=== PATIENT | female | born 1960 | race Caucasian/White ===

== ENCOUNTER 2020-08-26 12:53 | Outpatient (CLI) | payer OTHER, SELFPAY ==
[2020-08-26 13:19] LABS: Basophils Percent Auto 0.3 % (0.2-1.2); Eosinophils Absolute Auto 0.2 K/mm3 (0-0.3); Eosinophils Percent Auto 1.5 % (0-4.4); Hematocrit 44.7 % (37.0-47.0); Immature Granulocyte Absolute 0.04 K/mm3 (0.00-0.031); Immature Granulocyte Percent A 0.3 % (0-0.5); Lymphocytes Absolute Auto 1.62 K/mm3 (0.9-3.2); Lymphocytes Percent Auto 14.1 % (18.3-44.2); Mean Corpuscular HGB Conc 31.3 g/dl (32-36); Mean Corpuscular Hemoglobin 27.9 pg (26-34); Mean Corpuscular Volume 89.2 fl (80-100); Mean Platelet Volume 9.9 fl (7.4-10.4); Monocytes Absolute Auto 0.6 K/mm3 (0.1-0.6); Monocytes Percent Auto 5.3 % (2.6-8.5); Neutrophils Absolute Auto 9.1 K/mm3 (1.3-6.7); Neutrophils Percent Auto 78.5 % (45.5-73.1); Platelet Count Result 183 k/mm3 (150-375); Red Blood Count 5.01 M/mm3 (4.2-5.4); Red Cell Distribution Width 14.3 % (11.5-14.5); White Blood Count 11.5 K/mm3 (4.5-10.0)
[2020-08-26 15:39] LABS: Vitamin D 25 Hydroxy 38.7 ng/mL
[2020-08-26 15:41] LABS: Add Urine Microscopic? YES; Appearance Urine Cloudy (Clear); Bacteria Urine 2+ /hpf; Bilirubin Urine Negative (Negative); Blood Urine 2+ (Negative); Color Urine Yellow (Yellow); Glucose Urine UA Negative (Negative); Ketones Urine Negative (Negative); Leukocyte Esterase Ur Trace LEU/UL (NEGATIVE); Mucus Urine Moderate /lpf; Nitrate Urine Positive (Negative); Protein Urine 1+ mg/dL (Negative); Specific Grav Ur 1.019 (1.001-1.035); Squamous Epithelial Cell Urine Many /hpf (Few); Urobilinogen Urine Negative mg/dL (<2.0); WBC Urine 31-50 /hpf (0-3)
[2020-08-26 16:42] LABS: Alanine Aminotransferase 9 U/L (4-35); Albumin Level 4.6 g/dL (3.5-5.1); Alkaline Phosphatase 75 U/L (38-126); Anion Gap 9 mmol/L (8-16); Aspartate Amino Transferase 21 U/L (14-36); Blood Urea Nitrogen 24 mg/dL (7-17); Calcium 10.6 mg/dL (8.4-10.2); Carbon Dioxide 29 mmol/L (22-30); Chloride 102 mmol/L (98-107); Cholesterol 160 mg/dL (0-200); Estimated Glomerular Filt Rate > 60; Glucose 85 mg/dL (65-105); HDL Direct 72 mg/dL; Potassium 4.4 mmol/L (3.4-5.0); Sodium 140 mmol/L (137-145); Triglycerides 79 mg/dL (<150); Uric Acid 5.1 mg/dL (2.5-7.5)
[2020-08-26 16:55] LABS: LDL Cholesterol Direct 76 mg/dL
== END 2020-08-26 12:54 | disposition home or self-care (01) ==
LOC: ANHLAB 12:55
PROVIDERS: PCP Family Medicine; Visit Provider Internal Medicine
DX: E55.9 Vitamin D deficiency, unspecified (principal); D51.9 Vitamin B12 deficiency anemia, unspecified
CPT/HCPCS: 36415; 80053; 80061; 81001; 82306; 82607; 84443; 84550; 85025

== ENCOUNTER 2020-11-30 03:03 | Emergency (ER) | payer OTHER, SELFPAY ==
--- NOTE | ~2020-11-30 | XR_ITS ---
EXAMINATION: XR chest ET placement DATE: 11/30/2020 03:47 INDICATION: Endotracheal tube placement. Transient alteration of awareness. TECHNIQUE: frontal view of the chest was obtained. COMPARISON: Chest radiograph dated 10/25/2018 FINDINGS: Endotracheal tube tip 5.5 cm above the sulma. Nasogastric tube extends below the left hemidiaphragm with distal tip collimated off the study. Lungs remain clear with no focal airspace opacities, pulmo nary edema, pleural effusion or pneumothorax. The cardiomediastinal silhouette is normal. Bilateral o ld healed rib fractures. IMPRESSION: 1. No acute cardiopulmonary disease. Reviewed, dictated and finalized at location A.
--- NOTE | ~2020-11-30 | CT_ITS ---
EXAMINATION: CT brain wo con DATE: 11/30/2020 03:12 INDICATION: Unresponsive TECHNIQUE: Computed tomography (CT) of the head was performed without intravenous contrast. Sagittal and coronal reconstructions were performed. The mA was adjusted according to patient size. Iterative reconstruction technique was employed. The dose-length product was 605.33 mGy-cm. COMPARISON: None FINDINGS: Large intraparenchymal hematoma measuring approximately 5.0 x 4.8 x 4.5 cm centimeters in the left ba trell ganglia. There is extension of blood throughout the compressed and distorted left lateral ventric le. Additional extension of a small amount of blood into the anterior horn of the right lateral ventr icle and into the third and fourth ventricles. The intraparenchymal hemorrhage results in significant local mass effect including as previously detailed distortion of the left lateral ventricle as well as narrowing of the sulci and 1.3 cm left right midline shift at the level of the third ventricle and interventricular septum. No acute infarction. There is moderate scattered white matter hypoattenuati on consistent with chronic small vessel ischemic disease. The orbits and mastoid air cells are normal . Mild mucosal thickening the bilateral ethmoid sinuses. Intracranial calcified cerebral atherosclero sis is noted. IMPRESSION: 1. Large intraparenchymal hematoma centered in the left basal ganglia with intraventricular extension of hemorrhage and 1.3 cm left right midline shift. Reviewed, dictated and finalized at location A. IMPRESSION: 1. Large intraparenchymal hematoma centered in the left basal ganglia with intr aventricular extension of hemorrhage and 1.3 cm left right midline shift.
--- NOTE | 2020-11-30 03:07 | ECG_ITS ---
Measurements Intervals [place] Rate: 52 P: 76 IA: 158 QRS: -23 QRSD: 89 T: 110 QT: 433 QTc: 406 Interpretive Statements SINUS BRADYCARDIA WITH SINUS ARRHYTHMIA BORDERLINE R WAVE PROGRESSION, ANTERIOR LEADS ST-T WAVE ABNORMALITY IN ANTEROLAT/HIGH LAT LEADS- CONSIDER ISCHEMIA ABNORMAL ECG Electronically Signed On 11-30-2020 16:03:37 CDT by Marty Negrete D.O.
[2020-11-30 03:15] VITALS: BP 261/106; PULSE 58; RESP 14; TEMP 35.9; O2SAT 6
--- NOTE | 2020-11-30 03:21 | PC.NURSE ---
Contacted patient's family member, Mary Lou. She stated she is on her way. rotary saw operator notified.
--- NOTE | 2020-11-30 03:24 | ED.GENADULT ---
HPI - General Adult General Chief complaint: Altered Mental Status Stated complaint: unresponsive - no last known normal Source: RN notes reviewed History of Present Illness HPI narrative: Patient presents emergency department from home via EMS for altered mental status. The patient was found lying on the floor in the living room at home beside vomit last seen normal at 10 PM last night. The patient does have a history of hypertension per EMS had elevated blood pressure readings of 264/140. Patient unable to give any other history at this time medications with patient show that she is on propanolol and lisinopril Related Data Home Medications Medication Instructions Recorded Confirmed ergocalciferol (vitamin D2) unit 08/07/19 hydrochlorothiazide 08/07/19 lisinopril 08/07/19 omeprazole 08/07/19 propranolol 08/07/19 verapamil mg PO 08/07/19 Allergies Allergy/AdvReac Type Severity Reaction Status Date / Time No Known Allergies Allergy Verified 08/07/19 08:53 Review of Systems Review of Systems: ROS unobtainable: Yes unobtainable due to medical condition PMFSH Past Medical History Medical History COPD (chronic obstructive pulmonary disease) Depression GERD (gastroesophageal reflux disease) HTN (hypertension) Raynauds disease Surgical History Surgical History (Updated 08/07/19 @ 08:21 by POLINA Gil) H/O: Social History Social History (Updated 08/07/19 @ 08:22 by POLINA Gil) Smoking status: Current every day smoker Tobacco type: cigarettes Alcohol intake: never Substance use: never Gender identity (if verbalized by the patient): Female Exam Narrative: Exam Narrative: APPEARANCE: Laying in bed unresponsive with posturing minimal withdrawal to painful stimuli EYES: Left pupil is at 6 mm right pupil is 2 mm HEENT: Normocephalic, atraumatic, OMM RESPIRATORY: No respiratory distress Clear to auscultation bilaterally with no rhonchi wheezing or rales. CARDIOVASCULAR: Regular rate and rhythm without murmurs rubs or gallops. ABDOMINAL: Soft, nontender, nondistended, no rebound or guarding MUSCULOSKELETAl: No clubbing, cyanosis or edema. NEURO: Mild withdrawal to painful stimuli no movement with verbal stimuli posturing no gag reflex SKIN:: Warm, dry. No rashes lesions or abrasions PSYCHIATRIC: Normal affect/mood, Course Course Emergency Course: Called and discussed with Dr. Flora fong at [facility] for stroke at this time agrees with plan for transfer the ER recommends patient's blood pressure be dropped approximately 15% from her initial 260/[address] 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 Vital Signs Vital signs: Vital Signs Temperature 96.6 F L 11/30/20 03:15 Pulse Rate 58 L 11/30/20 03:15 Respiratory Rate 14 11/30/20 03:15 Blood Pressure 261/106 H 11/30/20 03:15 Pulse Oximetry 6 L 11/30/20 03:15 Temperature 96.6 F L 11/30/20 03:15 Pulse Rate 70 11/30/20 04:01 Respiratory Rate 18 11/30/20 03:58 Blood Pressure 195/108 H 11/30/20 04:01 Pulse Oximetry 96 11/30/20 03:53 Procedures Intubation Intubation #1: Intubation Date: 11/30/20 Intubation Time: 03:20 paralytic: Succinylcholine Mg Given: 60 Laryngoscope: fiber optic video scope Tube Size (cm): Cuffed Number of Attempts: 1 Tube Secured Depth (cm): 22 Tube Secured Location: lips Tube Placement Confirmation: visualized tube passing through cords, equal breath sounds bilaterally and confirmation by capnometry Patient Tolerated Procedure: well Intubati
[2020-11-30] MEDS: RAPID SEQUENCE INTUBATION KIT 1 EACH (03:25)
[2020-11-30 03:43] VITALS: BP 226/107; PULSE 53; RESP 22
[2020-11-30 03:46] LABS: Basophils Absolute Auto 0.1 K/mm3 (0.0-0.1); Basophils Percent Auto 0.4 % (0.2-1.2); Eosinophils Absolute Auto 0.2 K/mm3 (0-0.3); Hematocrit 51.8 % (37.0-47.0); Hemoglobin 17.1 g/dL (12.0-15.0); Immature Granulocyte Absolute 0.12 K/mm3 (0.00-0.031); Immature Granulocyte Percent A 0.7 % (0-0.5); Lymphocytes Absolute Auto 5.97 K/mm3 (0.9-3.2); Lymphocytes Percent Auto 34.6 % (18.3-44.2); Mean Corpuscular Hemoglobin 28.8 pg (26-34); Mean Corpuscular Volume 87.2 fl (80-100); Mean Platelet Volume 9.7 fl (7.4-10.4); Monocytes Absolute Auto 0.9 K/mm3 (0.1-0.6); Monocytes Percent Auto 5.2 % (2.6-8.5); Neutrophils Percent Auto 58.1 % (45.5-73.1); Platelet Count Result 236 k/mm3 (150-375); Red Blood Count 5.94 M/mm3 (4.2-5.4); Red Cell Distribution Width 16.2 % (11.5-14.5); White Blood Count 17.3 K/mm3 (4.5-10.0)
[2020-11-30 03:46] LABS: Alveolar/Arterial O2 Gradient 382.1 mmHg; Base Excess ABG -3.1 mEq/l (+/-2.0); Carboxyhemoglobin 1.6 % THb (0-2.0); Fractional Inspired Oxygen 100 %; HCO3 ABG 22.1 mEq/l (22.0-26.0); Methemoglobin ABG 0.2 %THb (0-1.5); Oxygen Content ABG 21.2 %vol (16.0-22.0); Oxygen Saturation ABG 99.7 % (95.0-100.0); Oxyhemoglobin 97.1 % THb (90.0-100.0); PCO2 ABG 40.1 mmHg (35.0-45.0); PO2 ABG 290.8 mmHg (80.0-100.0); PO2 FiO2 Ratio Arterial Blood 2.91 %; Reduced Hemoglobin 1.1 %THb (0-5.0); pH ABG 7.359 (7.350-7.450)
[2020-11-30 03:47] LABS: Device VENTILATOR; Modified Allen's Test Pass; Site Drawn RIGHT RADIAL
--- NOTE | 2020-11-30 03:47 | PC.NURSE ---
pt intubated with a # t @ 22 lip line oj- #[id number]. pt was given 30 mg of succinylcholine 30 mg
[2020-11-30 03:48] LABS: Arterial Blood Gas PEEP 5 cmH2O; Arterial Blood Gas Tidal Volume 300 ml; Arterial Blood Gas Vent Mode CMV; Arterial Blood Gas Ventilator rate 18 /MIN
[2020-11-30 03:53] VITALS: BP 225/107; PULSE 70; RESP 18; O2SAT 96
[2020-11-30 03:55] LABS: INR 0.9; Prothrombin Time 12.3 Seconds (11.1-14.7)
[2020-11-30 03:56] LABS: Ethanol < 10 mg/dL (<10); Partial Thromboplastin Time 28.2 SECONDS (22.3-36.8)
[2020-11-30 03:58] VITALS: PULSE 70; RESP 18
[2020-11-30] MEDS: PROPOFOL IV EMULSION 100 ML 1.65 MG IV CONT (03:58)
[2020-11-30] MEDS: MIDAZOLAM HCL (*CRX) 2 MG/2 ML VIAL (04:00)
[2020-11-30 04:01] VITALS: BP 195/108; PULSE 70
[2020-11-30] MEDS: niCARdipine 20 MG/200 ML 20 MG/200 ML BAG 50 MG IV CONT (04:01)
[2020-11-30 04:13] LABS: Add Urine Microscopic? YES; Appearance Urine Clear (Clear); Bacteria Urine Trace /hpf; Bilirubin Urine Negative (Negative); Blood Urine 1+ (Negative); Color Urine Straw (Yellow); Glucose Urine UA 2+ mg/dL (Negative); Ketones Urine Negative (Negative); Leukocyte Esterase Ur Trace LEU/UL (Negative); Nitrate Urine Negative (Negative); Protein Urine 3+ mg/dL (Negative); Squamous Epithelial Cell Urine Rare /hpf (Few); Urobilinogen Urine Negative mg/dL (<2.0)
[2020-11-30 04:16] LABS: Amphetamine Screen Urine Negative (Negative); Barbiturate Screen Urine Negative (Negative); Benzodiazepines Screen Urine Negative (Negative); Cannabinoid Screen Urine Positive (Negative); Cocaine Screen Urine Negative (Negative); Methadone Screen Urine Negative (Negative); Opiate Screen Urine Negative (Negative); Phencyclidine Screen Urine Negative (Negative)
== END 2020-11-30 04:22 | disposition short-term general hospital (02) ==
PROVIDERS: Emergency Provider Emergency Medicine; PCP Family Medicine
DX: I62.9 Nontraumatic intracranial hemorrhage, unspecified (principal); I16.1 Hypertensive emergency; I10 Essential (primary) hypertension; J44.9 Chronic obstructive pulmonary disease, unspecified; K21.9 Gastro-esophageal reflux disease without esophagitis; I73.00 Raynaud's syndrome without gangrene; F17.210 Nicotine dependence, cigarettes, uncomplicated; R00.1 Bradycardia, unspecified; R94.31 Abnormal electrocardiogram [ECG] [EKG]
CPT/HCPCS: 31500; 36415; 36600; 70450; 80307; 81001; 82375; 82805; 83050; 85025; 85610; 85730; 87077; 87086; 87088; 87186; 93005; 96365; 96368; 99291; J2250; J2704